=== PATIENT | female | born 1955 | race Two or more races ===

== ENCOUNTER 2024-05-29 04:15 | Inpatient (IN) | payer OTHER, MEDICAID ==
[~2024-05-29] VITALS: Ht 160 cm; Wt 59.0 kg
[2024-05-29 04:40] LABS: BASOPHILS # (AUTO) 0.1 K/uL (0.0-0.2); EOSINOPHILS # (AUTO) 0.1 K/uL (0.0-0.7); EOSINOPHILS % (AUTO) 0.9 % (0.0-6.0); HEMATOCRIT 41 % (33-45); HEMOGLOBIN 13.8 g/dL (11.5-14.8); LYMPHOCYTES # (AUTO) 2.3 K/uL (0.8-4.8); LYMPHOCYTES % (AUTO) 39.2 % (20.0-44.0); MEAN CORPUSCULAR HEMOGLOBIN 31 PG (26.0-33.0); MEAN CORPUSCULAR HGB CONC 34 g/dl (31.0-36.0); MEAN CORPUSCULAR VOLUME 91 fL (82-100); NEUTROPHILS # (AUTO) 2.5 K/uL (1.8-8.9); NEUTROPHILS % (AUTO) 41.9 % (43.0-81.0); PLATELET COUNT (AUTO) 181 K/uL (150-450); RED BLOOD CELL COUNT(AUTO) 4.49 MIL/uL (4.0-5.2); RED CELL DISTRIBUTION WIDTH 12.9 % (11.5-15.0)
[2024-05-29] MEDS ORDERED: MECLIZINE HCL 25 MG TABLET ONE ×2 (04:42→06:24)
[2024-05-29] MEDS ORDERED: ONDANSETRON HCL/PF 4 MG/2 ML VIAL ONE (04:42)
[2024-05-29 04:52] LABS: CALCIUM, SERUM 8.7 mg/dL (8.5-10.1); CARBON DIOXIDE 23 mmol/L (21-32); CHLORIDE 104 mmol/L (98-107); CREATININE 0.9 mg/dL (0.6-1.3); GLUCOSE 208 mg/dL (74-106); INR 0.95 (0.91-1.10); PARTIAL THROMBOPLASTIN TIME 31.1 SEC (24.3-34.3); PROTHROMBIN TIME 10.1 SECS (9.2-11.1); SODIUM SERUM 137 mmol/L (136-145); UREA NITROGEN, BLOOD 11 mg/dL (7-18)
[2024-05-29 04:57] LABS: ALANINE AMINOTRANSFERASE 53 U/L (12-78); ALKALINE PHOSPHATASE 91 U/L (46-116); ASPARTATE AMINOTRANSFERASE 25 U/L (15-37); BILIRUBIN,DIRECT 0.1 mg/dL (0.0-0.2); BILIRUBIN,TOTAL 0.3 mg/dL (0.2-1.0); TOTAL PROTEIN, SERUM 7.4 g/dL (6.4-8.2)
[2024-05-29] MEDS: IV NS 0.9% 500 ML BAG IV ONE (05:00)
[2024-05-29] MEDS: ONDANSETRON HCL/PF 4 MG/2 ML VIAL IVP ONE (05:05)
[2024-05-29] MEDS: MECLIZINE HCL 12.5 MG TABLET PO ONE ×2 (05:05→06:28)
[2024-05-29] MEDS ORDERED: MORPHINE SULFATE INJ 2 MG/ML DISP.SYRIN IV PRN (09:00)
[2024-05-29] MEDS ORDERED: ONDANSETRON HCL/PF 4 MG/2 ML VIAL IVP PRN (09:00)
[2024-05-29] MEDS ORDERED: DEXTROSE 50%-WATER 50 ML DISP.SYRIN IV PRN (09:30)
[2024-05-29] MEDS: IV NS 0.9% 1,000 ML IV SCH (09:50)
[2024-05-29] MEDS: ENOXAPARIN SODIUM 40 MG/0.4 ML DISP.SYRIN SQ SCH (09:51)
[2024-05-29] MEDS: BLOOD SUGAR DIAGNOSTIC 1 EACH STRIP IN SCH (11:24)
[2024-05-29] MEDS: INSULIN REGULAR, HUMAN 100 UNIT/ML 3 ML VIAL SQ PRN (11:29)
[2024-05-29] MEDS ORDERED: LEVO-146 PO (12:04)
[2024-05-29] MEDS ORDERED: AMLO-212 PO (12:04)
[2024-05-29] MEDS ORDERED: METF-442 PO (12:04)
[2024-05-29] MEDS ORDERED: METO25TA4 PO (12:04)
[2024-05-29] MEDS ORDERED: LISI20TA30 PO (12:04)
[2024-05-29 16:00] VITALS: BP 130/71; TEMP 98.1; O2SAT 92; O2SAT 98
[2024-05-29] MEDS: DOXYCYCLINE HYCLATE (100 MG) 100 MG TABLET PO SCH (17:26)
[2024-05-29 20:00] VITALS: BP 139/79; TEMP 97.9; O2SAT 95
[2024-05-29 20:39] VITALS: BP 139/79; TEMP 97.9; O2SAT 95
[2024-05-30] VITALS: BP 129/64; TEMP 98.1; O2SAT 95
[2024-05-30 04:00] VITALS: BP 147/69; TEMP 98.1; O2SAT 96
[2024-05-30 06:44] LABS: BASOPHILS % (AUTO) 0.7 % (0.0-2.0); EOSINOPHILS % (AUTO) 0.8 % (0.0-6.0); HEMATOCRIT 39 % (33-45); HEMOGLOBIN 12.9 g/dL (11.5-14.8); LYMPHOCYTES # (AUTO) 3.2 K/uL (0.8-4.8); LYMPHOCYTES % (AUTO) 60.9 % (20.0-44.0); MEAN CORPUSCULAR HEMOGLOBIN 30 PG (26.0-33.0); MEAN CORPUSCULAR HGB CONC 34 g/dl (31.0-36.0); MEAN CORPUSCULAR VOLUME 90 fL (82-100); MONOCYTES # (AUTO) 0.5 K/uL (0.1-1.30); NEUTROPHILS # (AUTO) 1.5 K/uL (1.8-8.9); NEUTROPHILS % (AUTO) 28.6 % (43.0-81.0); PLATELET COUNT (AUTO) 195 K/uL (150-450); RED BLOOD CELL COUNT(AUTO) 4.27 MIL/uL (4.0-5.2); RED CELL DISTRIBUTION WIDTH 12.7 % (11.5-15.0); WHITE BLOOD COUNT (AUTO) 5.3 K/uL (4.3-11.0)
[2024-05-30 07:16] LABS: ALANINE AMINOTRANSFERASE 42 U/L (12-78); ALBUMIN 2.6 g/dL (3.4-5.0); ALKALINE PHOSPHATASE 89 U/L (46-116); ASPARTATE AMINOTRANSFERASE 20 U/L (15-37); BILIRUBIN,TOTAL 0.3 mg/dL (0.2-1.0); CALCIUM, SERUM 8.7 mg/dL (8.5-10.1); CARBON DIOXIDE 26 mmol/L (21-32); CHLORIDE 108 mmol/L (98-107); CREATININE 0.5 mg/dL (0.6-1.3); GLUCOSE 135 mg/dL (74-106); MAGNESIUM 1.7 mg/dL (1.8-2.4); POTASSIUM 3.7 mmol/L (3.5-5.1); SODIUM SERUM 142 mmol/L (136-145); TOTAL PROTEIN, SERUM 6.7 g/dL (6.4-8.2); UREA NITROGEN, BLOOD 13 mg/dL (7-18)
[2024-05-30 08:00] VITALS: BP 166/82; TEMP 98.2; O2SAT 94
[2024-05-30] MEDS: MECLIZINE HCL 25 MG TABLET PO PRN (08:03)
[2024-05-30] MEDS: hydrALAZINE HCL IV 20 MG VIAL IV PRN (08:30)
[2024-05-30 09:00] VITALS: BP 128/70; O2SAT 100
[2024-05-30] MEDS ORDERED: DOXY100T2 PO (10:11)
[2024-05-30] MEDS ORDERED: MECL-159 PO (10:11)
[2024-05-30] MEDS: MAGNESIUM OXIDE 400 MG TABLET PO ONE (11:16)
[2024-05-30] MEDS: ACETAMINOPHEN 325 MG TABLET PO PRN (14:33)
[2024-05-30 16:00] VITALS: BP 119/63; TEMP 98.8; O2SAT 92
[2024-05-30 20:00] VITALS: BP 140/80; TEMP 98.4; O2SAT 94
== END 2024-05-30 20:49 | disposition home or self-care (01) | DRG 149 ==
LOC: ER 04:23 → TELE 09:14
PROVIDERS: ADMIT Internal Medicine; ATTEND Internal Medicine
DX: H81.12 Benign paroxysmal vertigo, left ear (principal); J01.80 Other acute sinusitis; I10 Essential (primary) hypertension; H83.03 Labyrinthitis, bilateral; H93.12 Tinnitus, left ear; H91.92 Unspecified hearing loss, left ear; Z88.0 Allergy status to penicillin; E11.65 Type 2 diabetes mellitus with hyperglycemia; R00.8 Other abnormalities of heart beat
CPT/HCPCS: 36415; 70450-TC; 71045-TC; 80048-TC; 80053-TC; 80076-TC; 82962-TC; 83735-TC; 84100-TC; 84484-TC; 85025-TC; 85730-TC; A4223; G0378; J0360; J1650; J1815; J2405; J7030; J7040; J8597